=== PATIENT | female | born 1985 | race Caucasian/White ===

== ENCOUNTER → 2021-06-08 | Outpatient (CLI) | payer OTHER ==
[~2021-06-08] MED LIST: MACROBID 1100 MG/CAP PO; PRENATAL1 TA1 PO; TYLENOL 325MG325 MG PO
[2021-06-08 07:27] LABS: ARTERIAL BLD GAS O2 SATURATION 98.4 % (92-100); ARTERIAL BLD GAS TCO2 CT 23.4; ARTERIAL BLOOD GAS BASE EXCESS -0.6 (-2-2); ARTERIAL BLOOD GAS HCO3 22.4 meq/L (22-26); ARTERIAL BLOOD GAS PCO2 32.1 mmHg (35-45); ARTERIAL BLOOD GAS PO2 102.6 mmHg (80-100); ARTERIAL BLOOD GAS pH 7.46 (7.35-7.45)
== END ==
LOC: COL.PUL 07:02
PROVIDERS: Internal Medicine Pulmonary Disease
DX: R06.02 Shortness of breath (principal); F17.210 Nicotine dependence, cigarettes, uncomplicated